=== PATIENT | female | born 1940 | race Caucasian/White ===

== ENCOUNTER → 2017-10-17 | Emergency (ER) | payer OTHER ==
[~2017-10-17] VITALS: Ht 154.9 cm; Wt 46.3 kg
[~2017-10-17] MED LIST: ADVIL200 M1 PO; PRAVASTATIN SOD20 MG; SIMVASTATIN20 MG; SMZ-TMP DS 800-1 TAB PO
== END | disposition home or self-care (01) ==
LOC: ER 11:06
DX: M79.1 Myalgia (principal); R10.31 Right lower quadrant pain; R10.11 Right upper quadrant pain

== ENCOUNTER 2019-02-06 11:17 | Emergency (ER) | payer OTHER ==
[~2019-02-06] VITALS: Ht 154.9 cm; Wt 46.7 kg
== END 2019-02-06 15:50 | disposition home or self-care (01) ==
LOC: ER 11:17
DX: M54.5 Low back pain (principal); R10.2 Pelvic and perineal pain

== ENCOUNTER 2019-12-25 10:25 | Outpatient (CLI) | payer OTHER | END 2019-12-25 10:32 | disposition home or self-care (01) | LOC: NUCLEAR 10:25 | PROVIDERS: ATTEND General Practice | DX: M81.0 Age-related osteoporosis without current pathological fracture (principal) ==

== ENCOUNTER 2020-06-14 11:11 | Emergency (ER) | payer OTHER ==
[~2020-06-14] VITALS: Ht 154.9 cm; Wt 49.0 kg
== END 2020-06-14 12:14 | disposition home or self-care (01) ==
LOC: ER 11:11
DX: M54.41 Lumbago with sciatica, right side (principal)

== ENCOUNTER 2020-06-28 18:23 | Emergency (ER) | payer OTHER ==
[~2020-06-28] VITALS: Ht 154.9 cm; Wt 46.3 kg
== END 2020-06-28 21:39 | disposition home or self-care (01) ==
LOC: ER 18:23
DX: G44.89 Other headache syndrome (principal)

== ENCOUNTER 2020-08-14 10:40 | Emergency (ER) | payer OTHER ==
[~2020-08-14] VITALS: Ht 152.4 cm; Wt 46.7 kg
[2020-08-14] MEDS ORDERED: CYCLOBENZAPRINE10 MG PO (14:54)
[2020-08-14] MEDS ORDERED: KETO10TA2 PO (14:54)
== END 2020-08-14 14:56 | disposition home or self-care (01) ==
LOC: ER 10:40
DX: M54.2 Cervicalgia (principal); M62.838 Other muscle spasm

== ENCOUNTER 2021-02-24 21:41 | Emergency (ER) | payer OTHER ==
[~2021-02-24] VITALS: Ht 154.9 cm; Wt 45.4 kg
[~2021-02-24 21:41] MED LIST changes: +CYCLOBENZAPRINE10 MG PO; +KETO10TA2 PO
[2021-02-25] MEDS ORDERED: KETO10TA2 PO (00:44)
[2021-02-25] MEDS ORDERED: AMOX-CLAV 875-1 EACH PO (00:44)
== END 2021-02-25 01:00 | disposition home or self-care (01) ==
LOC: ER 21:41
DX: K04.7 Periapical abscess without sinus (principal)

== ENCOUNTER 2021-06-22 12:26 | Emergency (ER) | payer OTHER ==
[~2021-06-22] VITALS: Ht 152.4 cm; Wt 44.5 kg
[~2021-06-22 12:26] MED LIST changes: +AMOX-CLAV 875-1 EACH PO
[2021-06-22] MEDS ORDERED: PANADOL EXTRA500 MG PO (13:06)
[2021-06-22] MEDS ORDERED: SIMVASTATIN20 MG PO (18:58)
== END 2021-06-22 17:43 | disposition home or self-care (01) ==
LOC: ER 12:26
DX: M54.59 Other low back pain (principal); R10.31 Right lower quadrant pain

== ENCOUNTER 2021-06-26 08:32 | Emergency (ER) | payer OTHER ==
[~2021-06-26] VITALS: Ht 152.4 cm; Wt 45.4 kg
[~2021-06-26 08:32] MED LIST changes: +PANADOL EXTRA500 MG PO; +SIMVASTATIN20 MG PO
== END 2021-06-26 10:38 | disposition home or self-care (01) ==
LOC: ER 08:32
DX: S01.322A Laceration with foreign body of left ear, initial encounter (principal); W18.09XA Striking against other object with subsequent fall, initial encounter; Y93.89 Activity, other specified; Y92.018 Other place in single-family (private) house as the place of occurrence of the external cause; Y99.8 Other external cause status

== ENCOUNTER 2021-07-12 16:25 | Emergency (ER) | payer OTHER ==
[~2021-07-12] VITALS: Ht 152.4 cm; Wt 44.5 kg
[2021-07-12] MEDS ORDERED: PANADOL (17:38)
== END 2021-07-12 21:16 | disposition home or self-care (01) ==
LOC: ER 16:25
DX: B34.9 Viral infection, unspecified (principal); Z11.52 Encounter for screening for COVID-19

== ENCOUNTER 2021-07-16 12:28 | Emergency (ER) | payer OTHER ==
[~2021-07-16] VITALS: Ht 152.4 cm; Wt 44.5 kg
[~2021-07-16 12:28] MED LIST changes: +PANADOL
== END 2021-07-16 16:38 | disposition home or self-care (01) ==
LOC: ER 12:28
DX: R03.0 Elevated blood-pressure reading, without diagnosis of hypertension (principal); T50.905A Adverse effect of unspecified drugs, medicaments and biological substances, initial encounter; Y92.89 Other specified places as the place of occurrence of the external cause

== ENCOUNTER 2022-03-11 12:35 | Emergency (ER) | payer OTHER ==
[~2022-03-11] VITALS: Ht 152.4 cm; Wt 45.4 kg
== END 2022-03-11 14:59 | disposition home or self-care (01) ==
LOC: ER 12:35
DX: M54.89 Other dorsalgia (principal); M62.830 Muscle spasm of back

== ENCOUNTER 2022-04-22 10:11 | Emergency (ER) | payer OTHER ==
[~2022-04-22] VITALS: Ht 152.4 cm; Wt 45.4 kg
== END 2022-04-22 16:33 | disposition home or self-care (01) ==
LOC: ER 10:11
DX: R10.2 Pelvic and perineal pain (principal); B34.9 Viral infection, unspecified; M54.9 Dorsalgia, unspecified; I10 Essential (primary) hypertension

== ENCOUNTER 2023-04-28 11:10 | Emergency (ER) | payer OTHER ==
[~2023-04-28] VITALS: Ht 152.4 cm; Wt 45.4 kg
[2023-04-28 12:36] LABS: HEMATOCRIT 38.5 % (36.0-45.00); HEMOGLOBIN 13.1 g/dL (12.0-15.00); MEAN CELL VOLUME 95.3 fL (80.00-100.00); MEAN CORPUSCULAR HEMOGLOBIN 32.5 pg (27.00-32.0); MEAN CORPUSCULAR HGB CONC 34.1 g/dl (32.0-36.0); PLATELET COUNT 278 K/uL (150-450); RED BLOOD COUNT 4.04 M/uL (4.00-6.00); RED CELL DISTRIBUTION WIDTH 12.8 % (11.5-14.5)
[2023-04-28 12:59] LABS: ALBUMIN 3.8 gm/dL (3.4-5.0); BILIRUBIN TOTAL 0.65 mg/dL (0.3-1.2); CALCIUM 8.9 mg/dL (8.5-10.1); CREATININE SERUM 0.8 mg/dL (0.55-1.02); GFR 68.5; GLOBULINA 3.7 G/DL (2.4-3.5); POTASSIUM 3.7 mEq/L (3.5-5.1); TOTAL PROTEIN 7.5 gm/dL (6.4-8.2)
== END 2023-04-28 14:26 | disposition home or self-care (01) ==
LOC: ER 11:10
PROVIDERS: General Practice
DX: R51.9 Headache, unspecified (principal); Z20.822 Contact with and (suspected) exposure to COVID-19

== ENCOUNTER 2024-05-16 11:24 | Emergency (ER) | payer OTHER ==
[~2024-05-16] VITALS: Ht 152.4 cm; Wt 45.8 kg
[2024-05-16] MEDS ORDERED: KETOROLAC TROMETHAMINE 30 MG VIAL IM ONE (12:30)
[2024-05-16 13:27] LABS: HEMATOCRIT 40.6 % (36.0-45.00); HEMOGLOBIN 13.8 g/dL (12.0-15.00); MEAN CELL VOLUME 94.7 fL (80.00-100.00); MEAN CORPUSCULAR HEMOGLOBIN 32.2 pg (27.00-32.0); PLATELET COUNT 312 K/uL (150-450); RED BLOOD COUNT 4.28 M/uL (4.00-6.00); RED CELL DISTRIBUTION WIDTH 13.4 % (11.5-14.5)
[2024-05-16 13:48] LABS: D DIMER 1.09 MG/L; PARTIAL THROMBOPLASTIN TIME 27.4 SECONDS (22.0-34.0)
[2024-05-16 13:49] LABS: INR 1.02; PROTHROMBIN TIME 11.1 SECONDS (9.0-11.5)
[2024-05-16 14:06] LABS: BILIRUBIN TOTAL 0.66 mg/dL (0.3-1.2); CALCIUM 9.9 mg/dL (8.5-10.1); CREATININE SERUM 0.79 mg/dL (0.55-1.02); GFR 69.33; GLOBULINA 3.9 G/DL (2.4-3.5); POTASSIUM 4.17 mEq/L (3.5-5.1); TOTAL PROTEIN 7.9 gm/dL (6.4-8.2)
== END 2024-05-16 15:53 | disposition home or self-care (01) ==
LOC: ER 11:26
PROVIDERS: General Practice
DX: M79.605 Pain in left leg (principal)

== ENCOUNTER 2024-10-22 19:53 | Emergency (ER) | payer OTHER ==
[~2024-10-22] VITALS: Ht 154.9 cm; Wt 40.8 kg
[2024-10-22] MEDS ORDERED: KETOROLAC TROMETHAMINE 60 MG VIAL IM ONE (23:00)
[2024-10-22] MEDS ORDERED: DEXAMETHASONE SODIUM PHOSPHATE 4 MG/ML VIAL IM ONE (23:00)
[2024-10-23 00:58] LABS: URINE APPEARANCE Cloudy; URINE BILIRRUBIN Negative (NEGATIVE); URINE BLOOD Moderate; URINE COLOR Yellow; URINE GLUCOSE Negative (NEGATIVE); URINE KETONE Trace (NEGATIVE); URINE LEUKOCYTE Negative; URINE NITRATE Negative; URINE PROTEIN Trace (NEGATIVE); URINE UROBILINOGEN 0.2 E.U./dl
[2024-10-23 01:02] LABS: URINE BACTERIA 3669.4 uL (0.0-1933); URINE WBC 49.2 uL (0.0-23.2)
[2024-10-23 01:10] LABS: URINE CAST 0.29 uL (0.0-1.40)
[2024-10-23 01:11] LABS: HEMATOCRIT 41.6 % (36.0-45.00); HEMOGLOBIN 14.2 g/dL (12.0-15.00); MEAN CELL VOLUME 95.1 fL (80.00-100.00); MEAN CORPUSCULAR HEMOGLOBIN 32.5 pg (27.00-32.0); MEAN CORPUSCULAR HGB CONC 34.2 g/dl (32.0-36.0); PLATELET COUNT 333 K/uL (150-450); RED BLOOD COUNT 4.37 M/uL (4.00-6.00); RED CELL DISTRIBUTION WIDTH 13.2 % (11.5-14.5)
== END 2024-10-23 03:06 | disposition home or self-care (01) ==
LOC: ER 19:53
PROVIDERS: Preventive Medicine Public Health & General Preventive Medicine
DX: M54.40 Lumbago with sciatica, unspecified side (principal)
CPT/HCPCS: 36415; 96372; 99282; J1100; J1885

== ENCOUNTER → 2024-11-14 | Emergency (ER) | payer OTHER ==
[~2024-11-14] VITALS: Ht 157.5 cm; Wt 45.4 kg
[~2024-11-14] MED LIST changes: +IBUprofen 20 MG/ML BLIST.PACK (5ML) PO ONE; +IBUprofen 20 MG/ML BLIST.PACK (5ML) PO STA; +ORPHENADRINE CITRATE 30 MG/ML AMPUL ONE
[2024-11-14 17:39] VITALS: BP 124/69; O2SAT 97
[2024-11-14 18:54] LABS: HEMATOCRIT 38.4 % (36.0-45.00); HEMOGLOBIN 13.1 g/dL (12.0-15.00); MEAN CELL VOLUME 95.3 fL (80.00-100.00); MEAN CORPUSCULAR HEMOGLOBIN 32.5 pg (27.00-32.0); MEAN CORPUSCULAR HGB CONC 34.1 g/dl (32.0-36.0); PLATELET COUNT 327 K/uL (150-450); RED BLOOD COUNT 4.03 M/uL (4.00-6.00); RED CELL DISTRIBUTION WIDTH 12.7 % (11.5-14.5)
[2024-11-14 19:43] LABS: COVID-19 AG NEGATIVE (NEGATIVE)
[2024-11-14 19:45] LABS: INFLUENZA A AG NEGATIVE (NEGATIVE)
== END | disposition home or self-care (01) ==
LOC: ER 17:06
PROVIDERS: General Practice
DX: J06.9 Acute upper respiratory infection, unspecified (principal); Z20.822 Contact with and (suspected) exposure to COVID-19

== ENCOUNTER 2025-03-05 09:25 | Emergency (ER) | payer OTHER ==
[~2025-03-05] VITALS: Ht 154.9 cm; Wt 40.8 kg
[~2025-03-05 09:25] MED LIST changes: -IBUprofen 20 MG/ML BLIST.PACK (5ML) PO ONE; -IBUprofen 20 MG/ML BLIST.PACK (5ML) PO STA; -ORPHENADRINE CITRATE 30 MG/ML AMPUL ONE
[2025-03-05] MEDS ORDERED: KETOROLAC TROMETHAMINE 30 MG VIAL IM ONE (10:00)
[2025-03-05] MEDS ORDERED: NORFLEX100MG PO (13:38)
== END 2025-03-05 14:59 | disposition home or self-care (01) ==
LOC: ER 09:25
DX: M54.16 Radiculopathy, lumbar region (principal)
CPT/HCPCS: 72100; 96372; 99283; J1885

== ENCOUNTER → 2025-03-30 | Emergency (ER) | payer OTHER ==
[~2025-03-30] VITALS: Ht 149.9 cm; Wt 40.8 kg
[~2025-03-30] MED LIST changes: +KETOROLAC TROMETHAMINE 30 MG VIAL IM ONE; +KETOROLAC TROMETHAMINE 30 MG VIAL ONE; +NORFLEX100MG PO
== END | disposition home or self-care (01) ==
LOC: ER 10:54
DX: M79.672 Pain in left foot (principal); S39.012A Strain of muscle, fascia and tendon of lower back, initial encounter; M79.605 Pain in left leg; M19.90 Unspecified osteoarthritis, unspecified site; I86.8 Varicose veins of other specified sites
CPT/HCPCS: 96372; 99282; J1885